=== PATIENT | female | born 1990 | race Caucasian/White ===

== ENCOUNTER 2021-02-19 08:06 | Day surgery (SDC) | payer BC, MEDICAID ==
[2021-02-18 14:57] VITALS: BMI 23.3
[2021-02-19] MEDS ORDERED: Lidocaine 1% MPF 2 ML VIAL ONE (08:46)
[2021-02-19] MEDS ORDERED: Neosporin Ophth Soln 10 ml Bottle ONE (09:30)
[2021-02-19] MEDS ORDERED: Ondansetron PF 4 MG/2 ML Vial ONE ×2 (10:45→11:13)
[2021-02-19] MEDS ORDERED: PROPOFOL 40 ML ONE (11:11)
[2021-02-19] MEDS ORDERED: Fentanyl 100 MCG/2 ML VIAL ONE (11:11)
[2021-02-19] MEDS ORDERED: Midazolam HCl 2 mg/2 ml Vial ONE (11:11)
[2021-02-19] MEDS ORDERED: Dexamethasone 4 mg/ml Vial ONE (11:13)
[2021-02-19] MEDS ORDERED: CEFAZOLIN 1 GM VIAL ONE (11:14)
[2021-02-19] MEDS ORDERED: Methylergonovine 0.2 MG/ML VIAL ONE (12:04)
[2021-02-19] MEDS ORDERED: Methylergonovine 0.2 MG TAB PO SCH (12:30)
== END 2021-02-19 13:40 | disposition home or self-care (01) ==
LOC: CSHSDC 08:06
PROVIDERS: ATTEND Obstetrics & Gynecology
PROC: 10D17ZZ Extraction of Products of Conception, Retained, Via Natural or Artificial Opening (ICD-10-PCS; principal; 2021-02-19)
DX: O02.1 Missed abortion (principal); Z86.16 Personal history of COVID-19; Z79.899 Other long term (current) drug therapy
CPT/HCPCS: 88305; J0690; J1100; J2210; J2250; J2405; J2704; J3010